=== PATIENT | female | born 1945 | race Two or more races ===

== ENCOUNTER 2017-11-09 18:07 | Emergency (ER) | payer OTHER ==
[~2017-11-09] VITALS: Ht 157.5 cm; Wt 64.0 kg
[2017-11-09] MEDS ORDERED: SINGULAIR10 MG (18:28)
[2017-11-09] MEDS ORDERED: ALTACE5 MG (18:28)
[2017-11-09] MEDS ORDERED: ADVAIR HFA 230/12 GM (18:28)
[2017-11-09] MEDS ORDERED: ZOCOR20 MG (18:28)
== END 2017-11-09 21:19 | disposition home or self-care (01) ==
LOC: ER 18:07
DX: S82.892A Other fracture of left lower leg, initial encounter for closed fracture (principal); W18.39XA Other fall on same level, initial encounter; Y93.89 Activity, other specified; Y92.098 Other place in other non-institutional residence as the place of occurrence of the external cause; Y99.8 Other external cause status

== ENCOUNTER 2023-01-25 11:06 | Outpatient (CLI) | payer OTHER ==
[~2023-01-25 11:06] MED LIST: ADVAIR HFA 230/12 GM; ALTACE5 MG; SINGULAIR10 MG; ZOCOR20 MG
== END 2023-01-25 12:25 | disposition home or self-care (01) ==
LOC: TOM 11:06
PROVIDERS: ATTEND Internal Medicine Cardiovascular Disease
DX: R51.9 Headache, unspecified (principal); R42 Dizziness and giddiness

== ENCOUNTER → 2023-02-26 | Outpatient (CLI) | payer OTHER | END | disposition home or self-care (01) | LOC: MRI 14:05 | PROVIDERS: ATTEND Internal Medicine Cardiovascular Disease | DX: R42 Dizziness and giddiness (principal); G45.9 Transient cerebral ischemic attack, unspecified | CPT/HCPCS: 70551 ==

== ENCOUNTER 2023-02-28 13:43 | Outpatient (CLI) | payer OTHER | END 2023-02-28 13:47 | disposition home or self-care (01) | LOC: RAD 13:43 | PROVIDERS: ATTEND Internal Medicine Cardiovascular Disease | DX: M12.9 Arthropathy, unspecified (principal); M46.48 Discitis, unspecified, sacral and sacrococcygeal region ==